=== PATIENT | male | born 1945 | race Caucasian/White ===

== ENCOUNTER → 2021-06-08 | Outpatient (CLI) | payer MEDICARE, OTHER ==
--- NOTE | 2021-06-08 12:15 | RAD ---
Single view of the chest. 06/08/2021 11:56 AM Indication: cough: Comparison: CT of the chest October 02, 2010 Findings: There is a dual-lead pacemaking device from a left subclavian approach. There is no focal c onsolidation. There is no pleural effusion or pneumothorax. There is mild cardiomegaly.. No acute oss eous abnormalities are seen. Impression: No evidence of acute cardiopulmonary process. Electronically signed by: Xavier Mariscal MD (06/08/2021 12:13 PM) [id number]
[2021-06-08 12:22] LABS: CALCIUM 8.7 mg/dL (8.5-10.1); CREATININE 1.1 mg/dL (0.7-1.3); GFR 64.9; POTASSIUM 3.9 mmol/L (3.5-5.1)
[2021-06-08 12:30] LABS: BASO % 0 % (0-3); EOS # 0.1 x10^3/uL (0.0-0.7); EOS % 1 % (0-3); HEMATOCRIT 40.7 % (39.0-53.0); HEMOGLOBIN 13.7 g/dL (13.0-17.5); LYMPH # 1.6 x10^3/uL (1.0-4.8); LYMPH % 21 % (24-48); MEAN CORPUSCULAR HEMOGLOBIN 30 pg (25-35); MEAN CORPUSCULAR HGB CONC 34 g/dL (31-37); MEAN CORPUSCULAR VOLUME 90 fL (79-100); MONO # 0.6 x10^3/uL (0.0-1.1); MONO % 8 % (0-9); NEUT # 5.4 x10^3uL (1.8-7.7); NEUT % 71 % (31-73); PLATELET COUNT 124 x10^3/uL (140-400); RED BLOOD COUNT 4.52 x10^6/uL (4.30-5.70); RED CELL DISTRIBUTION WIDTH 13.2 % (11.5-14.5); WHITE BLOOD COUNT 7.7 x10^3/uL (4.0-11.0)
== END ==
LOC: RAD 11:39
PROVIDERS: ATTEND Specialist
DX: I51.7 Cardiomegaly (principal); J06.9 Acute upper respiratory infection, unspecified; R05.9 Cough, unspecified; Z95.0 Presence of cardiac pacemaker
CPT/HCPCS: 36415; 71046; 80048; 85025